=== PATIENT | female | born 1990 | race Caucasian/White ===

== ENCOUNTER 2016-09-26 08:39 | Emergency (ER) | payer OTHER ==
[2016-09-26 09:02] VITALS: BP 115/92; PULSE 73; RESP 14; TEMP 97.5; O2SAT 99
[2016-09-26 09:13] LABS: COLOR YELLOW; LEUKOCYTE ESTERASE,URINE 1+ (NEGATIVE); NITRITE,URINE NEGATIVE (NEGATIVE); PH,URINE 7.5 (5.0-7.5)
--- NOTE | 2016-09-26 09:16 | UCPHY ---
H & P Patient Type: New HPI/ROS: CHIEF COMPLAINT: Hematuria, dysuria. HISTORY OF PRESENT ILLNESS: The patient is a 26-year-old female presenting with hematuria and dysuria for the past 2 days. She has had increased urinary frequency with some difficulty. She has a history of UTI and reports this feels the same. She denies fever, back pain, vomiting, or other complaints. REVIEW OF SYSTEMS: Constitutional: No fever, no chills. Eyes: No diplopia. ENT: No sore throat. Cardiovascular: No chest pain, no palpitations. Respiratory: No cough, no shortness of breath, no wheezing. Gastrointestinal: No nausea vomiting or diarrhea. No abdominal pain. Genitourinary: As above. Musculoskeletal: No back pain. Skin: No rashes. Neurological: No headache. 10 point ROS otherwise negative Past Medical/Surgical History: UTI. Social History: Former smoker. Smoking Status: Former smoker Physical Exam: General Appearance: Alert, no distress. Afebrile. Normal phonation. No respiratory distress. Eyes: Pupils equal and round no pallor or injection. No icterus ENT, Mouth: Mucous membranes moist. Pharynx not erythematous and without exudate. TM Clear. Neck: No adenopathy. Supple. No JVD. Trachea in midline. Respiratory: There are no retractions, lungs are clear to auscultation. Cardiovascular: Regular rate and rhythm. Abdomen: Soft and nontender, no masses, bowel sounds normal. Femoral pulses equal. Neurological: Ox3. No motor weakness. Sensation intact. Gait nl. Skin: Warm and dry, no rashes. Musculoskeletal: No joint swelling. Extremities: No edema. Homans sign negative. No cords. Psychiatric: Patient is oriented X 3, there is no agitation Constitutional: Initial Vital Signs Temperature (C) 36.4 C 09/26/16 09:00 Heart Rate 73 09/26/16 09:00 Respiratory Rate 14 09/26/16 09:00 Blood Pressure 115/92 H 09/26/16 09:00 O2 Sat (%) 99 09/26/16 09:00 O2 Delivery Mode Room Air Allergies/Adverse Reactions: No Known Allergies Allergy (Unverified 09/26/16 09:12) Home Medications: Medication Instructions Recorded Adderall 10 MG (*) 09/26/16 Lamictal 09/26/16 Latuda 09/26/16 Metformin HCl 09/26/16 Nitrofurantoin Macrobid [Macrobid] 100 mg PO BID #10 cap 09/26/16 Phenazopyridine HCl [Pyridium] 200 mg PO TID #6 tab 09/26/16 Medical Decision Making ED Course/Re-evaluation: UA ordered. Patient's urine significant for RBC 50-182 and WBC 15-25. She will be placed on an antibiotic and discharged home. - Data Points Laboratory Results: 09/26/16 09:08 Urine Color YELLOW Urine Appearance HAZY Urine pH 7.5 (5.0-7.5) Ur Specific [place] 1.010 (1.002-1.030) Urine Protein NEGATIVE (NEGATIVE) Urine Ketones NEGATIVE (NEGATIVE) Urine Blood 3+ H (NEGATIVE) Urine Nitrate NEGATIVE (NEGATIVE) Urine Bilirubin NEGATIVE (NEGATIVE) Urine Urobilinogen 0.2 EU EU (0.2-1.0) Ur Leukocyte Esterase 1+ H (NEGATIVE) Urine RBC 50-182 /hpf H /hpf (0-3) Urine WBC 15-25 /hpf H /hpf (0-3) Ur Epithelial Cells 1+ /lpf /lpf (NONE-1+) Urine Bacteria 2+ /hpf H /hpf (NONE SEEN) Ur Culture Indicated? INDICATED H (NI) Urine Glucose NEGATIVE (NEGATIVE) Departure - Departure Disposition: Home, Routine, Self-Care Clinical Impression: Cystitis Urinary tract infection Qualifiers: Urinary tract infection type: site unspecified Hematuria presence: with hematuria Qualified Code(s): N39.0 - Urinary tract infection, site not specified Condition: Good Instructions: Urinary Tract Infection in Women (ED), Hematuria (ED) Additional Instructions: Drink plenty of fluids. Take Macrobid and Pyridium as prescribed. Follow up with your primary care provider in the next 3-4 days if symptoms are not improving. Return for any serious worsening of condition. Return if fever back pain Referrals: PIPO ELDRIDGE MD [Other] - As per Instructions Prescriptions: Nitrofurantoin Macrobid [Macrobid] 100 mg PO BID #10 cap Phenazopyridine HCl [Pyridium] 200 mg PO TID #6 tab - PQRS PQRS Measurement: Does not apply. Report Scribed for: Husam Su Report Scribed by: Omar Escobar Date of Report: 09/26/16 Time of Report: 09:14 Physician Review and Approval Statement: 09/26/16 09:23 Portions of this note were transcribed by a medical lab specialist. I personally performed a history, physical exam, medical decision making, and confirmed accuracy of information the transcribed note.
[2016-09-26 09:23] LABS: RBC,URINE 50-182 /hpf (0-3); WBC,URINE 15-25 /hpf (0-3)
[2016-09-26 09:24] LABS: BACTERIA 2+ /hpf (NONE SEEN)
== END 2016-09-26 09:40 | disposition home or self-care (01) ==
LOC: CED 08:39
DX: N39.0 Urinary tract infection, site not specified (principal); B96.20 Unspecified Escherichia coli [E. coli] as the cause of diseases classified elsewhere; Z87.891 Personal history of nicotine dependence
CPT/HCPCS: 81003-PO; 81015-PO; G0463-PO

== ENCOUNTER 2016-09-28 08:07 | Emergency (ER) | payer OTHER ==
[2016-09-28 08:22] VITALS: BP 117/81; PULSE 75; RESP 18; TEMP 98.4; O2SAT 99
[2016-09-28] MEDS ORDERED: ONDANSETRON DISINTEGRATING 4 MG TAB PO ONE (08:39)
--- NOTE | 2016-09-28 08:56 | UCPHY ---
H & P Time Seen by Provider: 09/28/16 08:20 Patient Type: Established HPI/ROS: This patient had 2 episodes of vomiting this morning. This was prior to taking her Macrobid. She was diagnosed with cystitis and has had 2 days of Macrobid so far. She reports the hematuria has resolved but she has persistent dysuria. This concerned her because a few years ago she started with cystitis, then developed vomiting and was unable to take her antibiotics. She then developed pyelonephritis became quite ill missing 2 weeks school due to the illness. She has ongoing mild nausea and has not breakfast due to this. No further vomiting since the 2 episodes at home. ROS: No fevers. No other constitutional symptoms. HEENT: No coryza or cold symptoms pulmonary: No cough cardiovascular: No lightheadedness GI: No diarrhea. Normal bowel movements. No abdominal pain. : No vaginal discharge. Last menstrual period-years since she had her IUD. No back pain. No flank pain. 10 point ROS is otherwise negative. Past Medical/Surgical History: Cystitis diagnosed here 2 days ago-culture grew E coli sensitive to nitrofurantoin Pyelonephritis-few years ago Mood disorder Smoking Status: Former smoker Physical Exam: General Appearance: Alert, no distress. Eyes: Pupils equal and round no pallor or injection. ENT, Mouth: Mucous membranes moist. Respiratory: There are no retractions, lungs are clear to auscultation. Cardiovascular: Regular rate and rhythm. Gastrointestinal: Normoactive, soft, nontender, no organomegaly Back: No CVA tenderness Neurological: Alert with no focal deficits Skin: Warm and dry, no rashes. Musculoskeletal: Neck is supple nontender. Extremities are symmetrical, full range of motion. Psychiatric: Mood and affect normal DIFFERENTIAL DIAGNOSIS: After history and physical exam differential diagnosis was considered for medication intolerance, , viral illness, doubt pyelonephritis given patient's well clinical appearance without suggestive findings Constitutional: Initial Vital Signs Temperature (C) 36.9 C 09/28/16 08:20 Heart Rate 75 09/28/16 08:20 Respiratory Rate 18 09/28/16 08:20 Blood Pressure 117/81 H 09/28/16 08:20 O2 Sat (%) 99 09/28/16 08:20 O2 Delivery Mode Room Air Allergies/Adverse Reactions: No Known Allergies Allergy (Verified 09/28/16 08:20) Home Medications: Medication Instructions Recorded Adderall 10 MG (*) 09/26/16 Lamictal 09/26/16 Latuda 09/26/16 Metformin HCl 09/26/16 Nitrofurantoin Macrobid [Macrobid] 100 mg PO BID #10 cap 09/26/16 Phenazopyridine HCl [Pyridium] 200 mg PO TID #6 tab 09/26/16 Cephalexin [Keflex (*)] 500 mg PO TID #15 cap 09/28/16 Ondansetron Odt [Zofran Odt] 4 - 8 mg PO Q4PRN PRN #4 tab 09/28/16 MDM/Departure - MDM Diagnostics: Urine is negative. A review of her urine culture shows that the E coli sensitive to both 1st generation cephalosporins and nitrofurantoin Her current urinalysis is negative but will switch her over to Keflex to complete her course of antibiotics Medications Given: Discontinued Medications Ondansetron HCl (Zofran Odt) 4 mg PO EDNOW ONE Stop: 09/28/16 08:40 Last Admin: 09/28/16 08:59 Dose: 4 mg ED Course/Re-evaluation: Zofran ODT. Patient provided another urine sample Patient tolerated p. o. intake thereafter Given her vomiting on Macrobid will change her over to Keflex given possibility of medication intolerance. Clinically, no concerning findings that would suggest pyelonephritis at this time. we ruled out with negative urine test - Depart Disposition: Home, Routine, Self-Care Clinical Impression: Cystitis Vomiting Qualifiers: Vomiting type: unspecified Vomiting Intractability: non-intractable Nausea presence: with nausea Qualified Code(s): R11.2 - Nausea with vomiting, unspecified Condition: Good Instructions: Acute Nausea and Vomiting (ED), Urinary Tract Infection in Women (ED) Additional Instructions: Diagnosis: 1. Vomiting 2. Cystitis Plan: Drink plenty fluids Stop Macrobid Start Keflex antibiotic Zofran for nausea or vomiting if needed ED yogurt or take a probiotic while on antibiotics to prevent diarrhea. Return for any significant worsening despite treatment plan Stand Alone Forms: Work Excuse Prescriptions: Cephalexin [Keflex (*)] 500 mg PO TID #15 cap Ondansetron Odt [Zofran Odt] 4 - 8 mg PO Q4PRN PRN #4 tab PRN Reason: Vomiting Referrals: PIPO ELDRIDGE [Other] - As per Instructions - PQRS PQRS Measurement: NA
[2016-09-28 09:03] LABS: PH,URINE 6.5 (5.0-7.5)
[2016-09-28 09:13] LABS: COLOR ORANGE
[2016-09-28 09:20] LABS: RBC,URINE 0-1 /hpf (0-3)
[2016-09-28 09:21] LABS: BACTERIA 2+ /hpf (NONE SEEN)
== END 2016-09-28 09:30 | disposition home or self-care (01) ==
LOC: CED 08:07
DX: N30.00 Acute cystitis without hematuria (principal); R11.2 Nausea with vomiting, unspecified; Z87.440 Personal history of urinary (tract) infections; Z87.891 Personal history of nicotine dependence
CPT/HCPCS: 81003-PO; 81015-PO; 81025-PO; 99214-PO; G0463-PO